=== PATIENT | male | born 1965 | race Caucasian/White ===

== ENCOUNTER 2024-04-27 16:52 | Emergency (ER) | payer OTHER ==
[~2024-04-27] VITALS: Ht 182.9 cm; Wt 85.4 kg
[2024-04-27 17:34] VITALS: BP 140/92; PULSE 121; RESP 18; TEMP 100.9; O2SAT 92
[2024-04-27 18:38] LABS: BASOPHILS # (AUTO) 0.1 X10'3 (0-0.2); BASOPHILS % (AUTO) 0.4 % (0-1); EOSINOPHILS % (AUTO) 0 % (0-6); HEMATOCRIT 51.2 % (42.0-52.0); HEMOGLOBIN 17.6 g/dl (14.0-17.9); LYMPHOCYTES # (AUTO) 0.8 X10'3 (1.1-4.8); LYMPHOCYTES % (AUTO) 5.8 % (21-51); MEAN CORPUSCULAR HEMOGLOBIN 29.7 PG (27.0-31.0); MEAN CORPUSCULAR HGB CONC 34.4 g/dL (33.0-36.5); MEAN CORPUSCULAR VOLUME 86.4 FL (78-98); MEAN PLATELET VOLUME 7.1 FL (7.4-10.4); MONOCYTES # (AUTO) 1.3 X10'3 (0-0.9); MONOCYTES % (AUTO) 8.9 % (2-12); NEUTROPHILS # (AUTO) 12.1 X10'3 (1.8-7.7); NEUTROPHILS % (AUTO) 84.9 % (42-75); PLATELET COUNT 253 X10'3 (140-440); RED BLOOD COUNT 5.93 X10'6 (4.70-6.10); RED CELL DISTRIBUTION WIDTH 12.9 % (11.5-14.5); WHITE BLOOD COUNT 14.2 X10'3 (4.5-11.0)
[2024-04-27 18:53] LABS: ALANINE AMINOTRANSFERASE 54 U/L (12-78); ALBUMIN 3.4 G/DL (3.4-5.0); ALBUMIN/GLOBULIN RATIO 0.8 (1.1-1.5); ALKALINE PHOSPHATASE 119 IU/L (46-116); ANION GAP 7 (8-16); ASPARTATE AMINO TRANSFERASE 64 U/L (10-37); BILIRUBIN,TOTAL 0.5 MG/DL (0.1-1.0); BLOOD UREA NITROGEN 18 MG/DL (7-18); BUN/CREATININE RATIO 19.6 (10.0-20.0); CALCIUM 8.9 MG/DL (8.5-10.1); CHLORIDE 96 MMOL/L (99-107); CREATININE 0.92 MG/DL (0.60-1.10); GLUCOSE 226 MG/DL (70-104); POTASSIUM 4.5 MMOL/L (3.5-5.1); SODIUM 128 MMOL/L (135-145); TOTAL PROTEIN 7.8 G/DL (6.4-8.2); eCRCL 96 ML/MIN; eGFR 84 ML/MIN
[2024-04-27 19:02] LABS: PRO BRAIN NATRIURETIC PEPTIDE 295 PG/ML (0-125)
[2024-04-28] MEDS ORDERED: ALB0.5UD NEB (15:42)
[2024-04-28] MEDS ORDERED: AZIT250T83 PO (15:42)
[2024-04-28] MEDS ORDERED: PRED50TA PO (15:42)
== END 2024-04-27 22:24 | disposition left against medical advice (07) ==
LOC: ER 16:53
DX: R05.9 Cough, unspecified (principal); R06.02 Shortness of breath; Z53.21 Procedure and treatment not carried out due to patient leaving prior to being seen by health care provider
CPT/HCPCS: 36415; 71045; 80053; 83880; 84484; 85025; 93005

== ENCOUNTER 2024-04-28 10:35 | Emergency (ER) | payer MEDICAID, OTHER ==
[~2024-04-28] VITALS: Ht 172.7 cm; Wt 79.5 kg
[2024-04-28 11:32] VITALS: TEMP 97.6
[2024-04-28] MEDS: dexamethasone sod phosphate 10mg/ml inj IM STA (12:11)
[2024-04-28] MEDS: ipratropium/albuterol 3ml nebule NEB ONE (13:01)
[2024-04-28 13:04] VITALS: PULSE 100; RESP 22
[2024-04-28 13:10] VITALS: PULSE 97; RESP 24
[2024-04-28] MEDS ORDERED: AZIT250T83 PO (15:42)
[2024-04-28] MEDS ORDERED: ALB0.5UD NEB (15:42)
[2024-04-28] MEDS ORDERED: PRED50TA PO (15:42)
[2024-04-28 15:46] VITALS: BP 115/78; PULSE 96; RESP 16; O2SAT 94
== END 2024-04-28 15:52 | disposition home or self-care (01) ==
LOC: ER 10:36
DX: J06.9 Acute upper respiratory infection, unspecified (principal)
CPT/HCPCS: 87502; 87503; 93005; 94640; 96372; 99284; J1100; 94760